=== PATIENT | female | born 1995 ===

== ENCOUNTER 2019-01-13 10:44 | Inpatient (IN) | payer OTHER ==
[~2019-01-13] VITALS: Ht 162.5 cm; Wt 50.6 kg
--- NOTE | ~2019-01-13 | EKG ---
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
[2019-01-13 10:44] VITALS: BP 118/88
--- NOTE | 2019-01-13 10:52 | NUR ---
POISON CONTROL MADE AWARE . POPPY FORD RN.
[2019-01-13 11:26] LABS: BASO % 0.7 % (0.0-1.0); EOS % 0.2 % (1.0-4.0); HEMATOCRIT 37.1 % (37.0-47.0); HEMOGLOBIN 12.5 g/dl (12.0-16.0); LYMPH # 0.9 10*3/uL (1.3-4.4); MEAN CELL VOLUME 85.5 fl (81.0-99.0); MEAN CORPUSCULAR HGB 28.8 pg (27.0-31.0); MEAN CORPUSCULAR HGB CONC 33.7 g/dl (33.0-37.0); MEAN PLATELET VOLUME 9.9 fl (9.6-12.3); MONO # 0.2 10*3/uL (0.1-1.0); NEUT # 4.6 10*3/uL (2.3-7.9); NEUT % 79.6 % (47.0-73.0); PLATELET COUNT AUTOMATED 382 10*3/uL (130-400); RED BLOOD COUNT 4.34 10*6/uL (4.10-5.10); RED CELL DISTRI WIDTH 14.6 % (0-14.5); WHITE BLOOD COUNT 5.7 10*3/uL (4.8-10.8)
[2019-01-13 11:30] VITALS: BP 118/84
[2019-01-13 11:38] LABS: ACT PARTIAL THROMBO TIME 26.6 SECONDS (20.0-32.1)
[2019-01-13 11:44] LABS: ACETAMINOPHEN (TYLENOL) < 5.0 ug/ml (10-30); ALBUMIN 4.5 gm/dl (3.1-4.5); ALKALINE PHOSPHATASE 72 U/L (45-117); BETA-HCG, QUANT < 1.0 mIU/mL (1-3); BUN 11 mg/dl (7-24); CHLORIDE 108 mmol/L (98-107); CREATININE 0.91 mg/dL (0.55-1.02); ETHYL ALCOHOL < 3.0 mg/dl (<3); LIPASE 48 U/L (73-393); POTASSIUM 3.5 mmol/L (3.5-5.1); SGOT/AST 20 IU/L (3-35); SGPT/ALT 24 U/L (12-78); SODIUM 143 mmol/L (136-145); TOTAL PROTEIN 7.8 gm/dL (6.4-8.2); TROPONIN I < 0.015 ng/ml (<0.045)
[2019-01-13 12:10] VITALS: BP 110/60
--- NOTE | 2019-01-13 12:30 | NUR ---
PT HAVING HALLUCINATIONS OF SEEING THINKS SHE IS REACHING FOR THINGS OUT OF THE AIR. POPPY FORD RN.
[2019-01-13 13:04] VITALS: BP 113/79
[2019-01-13 14:30] VITALS: BP 126/90
--- NOTE | 2019-01-13 15:01 | NUR ---
SHARAN CH MADE AWARE OF CONSULT
--- NOTE | 2019-01-13 15:35 | NUR ---
psychiatric assessment: spoke with client who is agitated and guarded. client reports that she was just in [place] this am and was dc and now she doesnt know why she is here, she does have lapses in her timeline and memory, i did try to call her bf kush, , i had to leave a and i asked him to call back. client is denying to me that she is suicidal, i did not evidence any psychosis, she is alert and oriented x4, she is mildy angry and does not want to be here. she did admit that she took 20 benadryl because she and her bf had a fight. she is refusing a urine, if i were to refer her to an inpatient psych she has to have a tox screen, alcohol and all of her labs to indicate that she is medically clear. i will check back later to see the status of this.
--- NOTE | 2019-01-13 16:40 | NUR ---
UP TO DESK LOOKING FOR GLASSES AND KEYS. REMINDED THAT SHE HAD NOTHING BUT A CELL PHONE WITH HER ON ADMISSION. SHE IS IN HOSPITAL GOWN AND PJ BOTTOMS. IV REMOVED. WALKING SLOWLY DOWN [place] LOOKING AROUND. LOOPED AROUND HALLWAY AGAIN. TAKEN DOWN TO FRONT DOORS WITH NURSE BENOIT. SHE REFUSES TO LET US CALL HER PARENTS. SHE STATES "SHE IS A GROWN ADULT." SHE STATES THAT STAFF IS "ALL F NUTS.
--- NOTE | 2019-01-13 16:40 | NUR ---
DR SONI CALLED AFTER PATIENT SAID WE CANNOT HOLD HER AND THAT WE WERE TALKING ABOUT HER AND THAT SHE THOUGHT THE RESIDENTS AT THE DESK WERE ALLERGY SPECIALIST. WHEN TOLD THEY WERE DOCTORS SHE LAUGHED. SHE THEN SAID SHE ISN'T STUPID AND SHE IS LEAVING THAT WE CANNOT HOLD HER. PATIENT IS NOT PINK SLIPPED SO DR SONI CALLED AND NOTE FROM SHARAN CH READ. HE WILL DISCHARGE THE PATIENT SINCE SHE IS DENYING SUICIDAL THOUGHTS AND TOLD US TO MIND OUR OWN BUSINESS AND THEN CALLED THIS NURSE A BH. NURSE TOLD HER SHE CANNOT TALK TO US THAT WAY AND TO PLEASE STOP WYELLING THERE ARE SICK PEOPLE. PATIENT CAN BE DISCHARGED AND IV REMOVED & MONITOR REMOVED.
== END 2019-01-13 16:40 | disposition home or self-care (01) | DRG 917 ==
LOC: ED 10:44 → EDHOLD 11:25 → ICCU 11:25
PROVIDERS: Emergency Medicine; ADMIT Internal Medicine
DX: T45.0X2A Poisoning by antiallergic and antiemetic drugs, intentional self-harm, initial encounter (principal); G93.41 Metabolic encephalopathy; E87.8 Other disorders of electrolyte and fluid balance, not elsewhere classified; R00.0 Tachycardia, unspecified; F32.9 Major depressive disorder, single episode, unspecified; F41.9 Anxiety disorder, unspecified; Y92.89 Other specified places as the place of occurrence of the external cause; Z86.32 Personal history of gestational diabetes; Z81.8 Family history of other mental and behavioral disorders

== ENCOUNTER → 2024-06-16 | Outpatient (CLI) | payer OTHER ==
[2024-06-16 08:31] LABS: BASO % 0.8 % (0.0-1.0); EOS # 0.1 10*3/uL (0.0-0.4); EOS % 1.4 % (1.0-4.0); HEMATOCRIT 36.9 % (37.0-47.0); MEAN CELL VOLUME 89.8 fl (81.0-99.0); MEAN CORPUSCULAR HGB 31.4 pg (27.0-31.0); MONO # 0.4 10*3/uL (0.1-1.0); MONO % 8.6 % (3.0-9.0); NEUT % 58.5 % (47.0-73.0); PLATELET COUNT AUTOMATED 272 10*3/uL (130-400); RED BLOOD COUNT 4.11 10*6/uL (4.10-5.10); RED CELL DISTRI WIDTH 12.9 % (0-14.5); WHITE BLOOD COUNT 5.1 10*3/uL (4.8-10.8)
[2024-06-16 09:15] LABS: ALKALINE PHOSPHATASE 62 U/L (46-116); BUN 13 mg/dl (9-23); CHLORIDE 107 mmol/L (98-107); CHOLESTEROL 194 mg/dL (<200); LDL CHOLESTEROL 80 mg/dL (9-159); SGPT/ALT 7 U/L (5-49); TOTAL PROTEIN 6.7 gm/dL (6.0-8.0)
[2024-06-16 09:17] LABS: VITAMIN D, 25-HYDROXY 31.9 ng/mL (30-100)
[2024-06-16 09:50] LABS: FREE T4 1.27 ng/dl (0.89-1.76)
[2024-06-17 05:07] LABS: HBSAG Negative (Negative); HEP B CORE AB, IGM Negative (Negative); HEPATITIS C ANTIBODY Non Reactive (Non Reactive)
== END | disposition home or self-care (01) ==
LOC: LAB 08:02
PROVIDERS: ATTEND Registered Nurse
DX: Z11.59 Encounter for screening for other viral diseases (principal); Z13.1 Encounter for screening for diabetes mellitus; Z13.220 Encounter for screening for lipoid disorders; F19.20 Other psychoactive substance dependence, uncomplicated